=== PATIENT | male | born 1940 | race Caucasian/White ===

== ENCOUNTER 2018-05-25 19:49 | Emergency (ER) | payer MEDICARE, OTHER ==
[~2018-05-25] VITALS: Ht 180.3 cm; Wt 100.0 kg
[~2018-05-25 19:49] MED LIST: ACET-1757 PO; ASCO-232 PO; ASPI81TA45 PO; BILB500C PO; BIOTINE PO; CALC-255 PO; CETI-158 PO; CHOL2000 PO; CHOLESTEROL PO; CLOP75TA PO; CLOP75TA52 PO; DHA OMEGA PO; DOCU100T3 PO; FINA5TAB4 PO; LEVE500T53 PO; LEVO175T5 PO; LEVO75TA5 PO; LIOT5TAB3 PO; LORATADINE PO; LOVA40TA2 PO; LUTE20CA2 PO; MAGN71.5 PO; META-23 PO; METF500T17 PO; METF500T27 PO; METO25TA35 PO; MULT-658 PO; NITR0.4T28 SL; OXYC5TAB3 PO; PANT40TA5 PO; QUIN10TA PO; QUIN10TA15 PO; SAW1CAPS2 PO; SENN-177 PO; SODI325T PO; SODI650T PO; TAMS-11 PO; TEST1.25 SUBD; UBID100C24 PO; VIT1CAPS9 PO; [UNRECOGNIZED DRUG - CODE] PO; omega 3 krill oil PO; vitamin b-6 PO; vitamin e PO
[2018-05-25] MEDS ORDERED: ASPIRIN 81 MG TABLET CHEW PO ONE (20:30)
[2018-05-25 20:52] LABS: BASOPHILS # (AUTO) 0.02 x10^3/uL (0-0.1); BASOPHILS % (AUTO) 1 % (0-1); EOSINOPHILS # (AUTO) 0.49 x10^3/uL (0-0.4); EOSINOPHILS % (AUTO) 9 % (1-7); LYMPHOCYTES # (AUTO) 1.37 x10^3/uL (1-3.4); LYMPHOCYTES % (AUTO) 26 % (22-44); MD NO; MEAN CORPUSCULAR HEMOGLOBIN 33.4 pg (27.5-34.5); MEAN CORPUSCULAR HGB CONC 33.7 g/dL (33.2-36.2); MEAN CORPUSCULAR VOLUME 98.9 fL (81-97); MEAN PLATELET VOLUME 8.6 fL (7.4-10.4); MONOCYTES # (AUTO) 0.49 x10^3/uL (0.2-0.8); MONOCYTES % (AUTO) 9 % (2-9); NEUTROPHILS # (AUTO) 2.92 x10^3/uL (1.8-6.8); NEUTROPHILS % (AUTO) 55 % (42-75); PLATELET COUNT 202 x10^3/uL (130-400); RED BLOOD COUNT 4.43 x10^6/uL (4.38-5.82); RED CELL DISTRIBUTION WIDTH 13.5 % (9.4-14.8)
[2018-05-25 20:59] LABS: ALBUMIN 3.7 g/dL (3.4-5.0); CALCIUM 8.6 mg/dL (8.5-10.1); CHLORIDE 110 mmol/L (98-107)
[2018-05-25 21:01] LABS: ANION GAP -1 mmol/L (5-15)
[2018-05-25 21:05] LABS: CREATININE 0.99 mg/dL (0.7-1.3); TROPONIN I 0.022 ng/mL (0.000-0.045)
--- NOTE | 2018-05-26 00:11 | NUR ---
pt to room from lobby
[2018-05-26] MEDS ORDERED: ASPIRIN 81 MG TABLET CHEW ONE (00:23)
--- NOTE | 2018-05-26 00:57 | NUR ---
ASSUMED CARE OF PATIENT. REPORT GIVEN FROM LATHA HURT PT IS IN US
[2018-05-26] MEDS ORDERED: CLOP75TA52 PO (01:40)
[2018-05-26] MEDS ORDERED: ASPI-496 PO (01:41)
[2018-05-26] MEDS ORDERED: LEVO150T5 PO (01:42)
[2018-05-26] MEDS ORDERED: LIOT5TAB3 PEG (01:43)
--- NOTE | 2018-05-26 01:45 | NUR ---
PT BACK FROM US. PT REPORTS HE HAS HAD LEFT SIDED CHEST PAIN THAT GOES INTO HIS SHOULDER 2/10 X3 DAYS. RHEUMATOLOGY NURSE ON SINUS MALIK NOTED. PT REPORTS HE HAS A LOW HEART RATE, AND HE RUNS A LOT. VS STABLE. CALL LIGHT IN PLACE. WILL CONTINUE TO MONITOR.
--- NOTE | 2018-05-26 02:07 | NUR ---
PT RESTING IN ROOM. NO ACUTE DISTRESS NOTED. RECRUITING CONSULTANT ON. SINUS MALIK NOTED. AT BEDSIDE. CALL LIGHT IN PLACE. WILL CONTINUE TO MONITOR.
--- NOTE | 2018-05-26 02:41 | NUR ---
DR OZUNA AWARE OF PATIENTS VS AND THAT PT IS MALIK PT WENT TO CT
[2018-05-26] MEDS ORDERED: OMNIPAQUE 350 MG/ML, 100ML BOTTLE ONE (02:48)
[2018-05-26 03:35] VITALS: BP 141/75
--- NOTE | 2018-05-26 03:37 | NUR ---
PT DENIES DIZZINESS PT REPORTS HIS HR IS ALWAYS LOW DR OZUNA AWARE. PT DISCHRAGED PER DR OZUNA.
== END 2018-05-26 03:37 | disposition home or self-care (01) ==
LOC: ED 23:59
DX: R07.89 Other chest pain (principal); I25.10 Atherosclerotic heart disease of native coronary artery without angina pectoris; I10 Essential (primary) hypertension; I25.2 Old myocardial infarction; E03.9 Hypothyroidism, unspecified; E11.9 Type 2 diabetes mellitus without complications
CPT/HCPCS: 36415; 71046; 71275; 80048; 82040; 83880; 84484; 85025; 85379; 93005; 93970; 99284; Q9967

== ENCOUNTER → 2020-12-06 | Outpatient (CLI) | payer MEDICARE, OTHER ==
[~2020-12-06] MED LIST changes: -ACET-1757 PO; +ACET-2065 PO; +ASPI-496 PO; +LEVO150T5 PO; +LIOT5TAB11 PEG; +LIOT5TAB11 PO; -LIOT5TAB3 PO; -OXYC5TAB3 PO; +OXYC5TAB98 PO; -PANT40TA5 PO; +PANT40TA6 PO; -SAW1CAPS2 PO; +SAW1CAPS6 PO; +[UNRECOGNIZED DRUG - CODE] PO; -[UNRECOGNIZED DRUG - CODE] PO
== END | disposition home or self-care (01) ==
LOC: RAD 14:35
PROVIDERS: ATTEND Family Medicine
DX: M79.605 Pain in left leg (principal); I82.402 Acute embolism and thrombosis of unspecified deep veins of left lower extremity; M54.5 Low back pain